=== PATIENT | male | born 1990 | race Hispanic/Latino ===

== ENCOUNTER 2018-01-03 17:51 | Emergency (ER) | payer OTHER ==
[2018-01-03 17:59] VITALS: BP 157/72
[2018-01-03] MEDS ORDERED: Sodium Chloride 0.9% 1,000 ML IV STA (18:35)
--- NOTE | 2018-01-03 18:37 | ED PDOC ---
HPI: Allergic Reaction Time Seen by Provider: 01/03/18 18:26 Chief Complaint (Nursing): Allergic Reaction Chief Complaint (Provider): Hives History Per: Patient History/Exam Limitations: no limitations Onset/Duration Of Symptoms: Days (1) Current Symptoms Are (Timing): Still Present Additional Complaint(s): 27 yo male with multiple food and medication allergies presents with hives since yesterday. Pt states he was having GI upset and took peptobismal which resulted in hives. Pt states he has been taking benadryl 50mg every 4-6 hours. PT states the hives are not improving. No fever/chills. Past Medical History Reviewed: Historical Data, Nursing Documentation, Vital Signs Vital Signs: Last Vital Signs Temp 98.2 F 01/03/18 17:56 Pulse 137 H 01/03/18 17:56 Resp 18 01/03/18 17:56 BP 157/72 H 01/03/18 17:56 Pulse Ox 99 01/03/18 17:56 - Medical History PMH: No Chronic Diseases - Surgical History Surgical History: No Surg Hx - Family History Family History: States: No Known Family Hx - Living Arrangements Living Arrangements: With Family - Social History Current smoker - smoking cessation education provided: No Alcohol: Occasional Drugs: Denies - Home Medications Home Medications: Ambulatory Orders Medication Instructions Recorded Famotidine [Pepcid] 20 mg PO DAILY #6 tab 01/03/18 predniSONE [predniSONE Tab] 20 mg PO DAILY #12 tab 01/03/18 - Allergies Allergies/Adverse Reactions: Allergies Allergy/AdvReac Type Severity Reaction Status Date / Time egg Allergy RASH Verified 01/03/18 17:56 nut - unspecified Allergy RASH Verified 01/03/18 17:56 Penicillins Allergy RASH Verified 01/03/18 17:56 shellfish derived Allergy RASH Verified 01/03/18 17:56 Sulfa (Sulfonamide Allergy RASH Verified 01/03/18 17:56 Antibiotics) Review of Systems ROS Statement: Except As Marked, All Systems Reviewed And Found Negative Constitutional: Negative for: Fever, Chills Cardiovascular: Negative for: Chest Pain Respiratory: Negative for: Shortness of Breath Skin: Positive for: Rash Physical Exam - Reviewed Nursing Documentation Reviewed: Yes Vital Signs Reviewed: Yes - Physical Exam Appears: Positive for: Well, Non-toxic, No Acute Distress Head Exam: Positive for: ATRAUMATIC, NORMAL INSPECTION, NORMOCEPHALIC Skin: Positive for: Normal Color, Warm, DRY Eye Exam: Positive for: Normal appearance ENT: Positive for: Normal ENT Inspection Neck: Positive for: Normal, Painless ROM Cardiovascular/Chest: Positive for: Regular Rate, Rhythm Respiratory: Positive for: Normal Breath Sounds. Negative for: Accessory Muscle Use, Respiratory Distress Back: Positive for: Normal Inspection Extremity: Positive for: Normal ROM Neurologic/Psych: Positive for: Alert, Oriented - ECG O2 Sat by Pulse Oximetry: 99 Pulse Ox Interpretation: Normal Disposition - Clinical Impression Clinical Impression: Allergic reaction - Patient ED Disposition Is Patient to be Admitted: No Counseled Patient/Family Regarding: Diagnosis, Need For Followup, Rx Given - Disposition Disposition: Routine/Home Disposition Time: 19:49 Condition: STABLE Prescriptions: Famotidine [Pepcid] 20 mg PO DAILY #6 tab predniSONE [predniSONE Tab] 20 mg PO DAILY #12 tab Instructions: Allergy Skin Testing Forms: [facility] [facility] (Kyrgyz)
[2018-01-03 20:18] VITALS: PULSE 97; RESP 17; TEMP 98.7; O2SAT 100
== END 2018-01-03 20:17 | disposition home or self-care (01) ==
LOC: H.ER 17:51
DX: T78.40XA Allergy, unspecified, initial encounter (principal); Z88.0 Allergy status to penicillin
CPT/HCPCS: 96360; 99283; J2930; J7040